=== PATIENT | male | born 1965 | race Caucasian/White ===

== ENCOUNTER 2016-10-06 21:28 | Emergency (ER) | payer OTHER ==
[~2016-10-06] VITALS: Ht 177.8 cm; Wt 90.0 kg
[~2016-10-06 21:28] MED LIST: DLN30 PO; OMEP40CA PO; PHENYTOIN PO; PRAV20TA PO
[2016-10-06 21:29] VITALS: TEMP 36.7; Ht 177.8 cm; Wt 90.0 kg
[2016-10-06] MEDS ORDERED: OXYCODONE HCL IR 5 MG TAB (IMMEDIATE RELEASE) PO STA (21:38)
[2016-10-06] MEDS ORDERED: KETOROLAC TROMETHAMINE 60 MG/2 ML VIAL IM STA (21:38)
--- NOTE | 2016-10-06 22:05 | DIAGNOSTIC IMAGING REPORT ---
LEFT RIBS UNILATERAL WITH PA CHEST CLINICAL HISTORY: Left rib pain status post trauma COMPARISON STUDY: No previous studies for comparison. FINDINGS: The heart is borderline enlarged. There is bilateral interstitial thickening. Superimposed left basal airspace opacities are likely atelectatic. No pneumothorax is visualized. No left-sided rib fractures are identified. IMPRESSION: 1. No evidence of pneumothorax 2. No left-sided rib fractures identified 3. Interstitial thickening Electronically signed by: Loc Berumen M.D. 10/06/2016 10:03 PM Dictated Date/Time: 10/06/2016 10:02 PM
[2016-10-06] MEDS ORDERED: DLN100 PO (22:07)
[2016-10-06] MEDS ORDERED: OXYC1TAB3 PO (22:29)
[2016-10-06] MEDS ORDERED: OXYCODONE IR HOME PACK PO ONE (22:30)
--- NOTE | 2016-10-06 22:48 | EMERGENCY ROOM VISIT NOTE ---
History First contact with patient: 21:33 Chief Complaint: RIB PAIN Stated Complaint: SORE LEFT SIDE- SHOULDER/RIBS-WC History of Present Illness The patient is a 51 year old male who presents to the Emergency Room with complaints of left-sided rib pain. The patient states that he had a seizure yesterday and when he came out of the seizure he was laying on the ground and had left rib pain. The patient states it hurts to take in a deep breath or any movement of his upper body. He also states that it hurts to move his left shoulder but the pain is in the rib cage and not in the shoulder joint and he moves his shoulder. The patient denies any shortness of breath. The patient denies any head injury, back pain or upper back pain or neck pain. The patient has been taking ibuprofen for pain. His last dose was this morning. Review of Systems 10 system review was performed and was negative unless stated otherwise history of present illness. Past Medical/Surgical History Seizure disorder due to head injury, cholecystectomy Social History Smoking Status: Never Smoker Alcohol Use: none Drug Use: none Marital Status: Housing Status: lives with family Occupation Status: disabled Current/Historical Medications Scheduled Escitalopram Oxalate (Lexapro), 30 MG PO DAILY Omeprazole (Prilosec), 40 MG PO DAILY Phenytoin Sodium (Dilantin), 50 MG PO DAILY Phenytoin Sodium (Dilantin), 300 MG PO QPM Phenytoin Sodium (Dilantin), 500 MG PO QAM Pravastatin (Pravachol ), 40 MG PO DAILY Scheduled PRN Oxycodone Immediate Rel Tab (Roxicodone Ir), 1-2 TAB PO Q6 PRN for Pain Allergies Coded Allergies: No Known Allergies (Unverified , NONE, 10/06/16) Physical Exam Vital Signs Date Time Temp Pulse Resp B/P Pulse Ox O2 Delivery O2 Flow Rate FiO2 10/06/16 21:29 36.7 82 20 139/84 99 Room Air Physical Exam GENERAL: 51-year-old white male appears uncomfortable secondary to rib pain. MENTAL Status: Alert and oriented 3. NECK: Supple, no lymphadenopathy noted. No carotid bruits noted. LUNGS: Clear auscultation without wheezes rales or rhonchi. CARDIAC: Regular rate and rhythm without murmur. Pulses is full and equal throughout. CHEST WALL: No gross bony deformity noted. No erythema or ecchymosis noted. The patient has tenderness palpation over the entire left anterior chest wall as well as the mid to lower posterior chest wall. LEFT SHOULDER: No gross bony deformity noted. The patient is nontender to palpation over the entire shoulder joint. Full range of motion without any pain elicited in the shoulder joint. Medical Decision & Procedures ER Provider Diagnostic Interpretation: LEFT RIBS UNILATERAL WITH PA CHEST CLINICAL HISTORY: Left rib pain status post trauma COMPARISON STUDY: No previous studies for comparison. FINDINGS: The heart is borderline enlarged. There is bilateral interstitial thickening. Superimposed left basal airspace opacities are likely atelectatic. No pneumothorax is visualized. No left-sided rib fractures are identified. IMPRESSION: 1. No evidence of pneumothorax 2. No left-sided rib fractures identified 3. Interstitial thickening Electronically signed by: Loc Berumen M.D. 10/06/2016 10:03 PM Medications Administered Medications (Trade) Dose Ordered Sig/Ky Route Start Time Stop Time Status Last Admin Dose Admin Ketorolac Tromethamine (Toradol Inj) 60 mg NOW STAT IM 10/06/16 21:38 10/06/16 21:39 DC 10/06/16 22:18 60 MG Oxycodone HCl (Roxicodone Immediate Rel Tab) 10 mg NOW STAT PO 10/06/16 21:38 10/06/16 21:39 DC 10/06/16 22:19 10 MG ED Course The patient was evaluated. The patient was given Toradol 60 mg IM and OxyIR 10 mg by mouth. X-ray of the left ribs was ordered and interpreted by the radiologist and myself as above without any acute findings. The patient was informed of the findings and was reevaluated was feeling better. The patient was given OxyIR home pack to take as directed. The patient was discharged home with his driving. Medical Decision Differential diagnosis include rib contusion versus rib fracture, pneumothorax Impression Primary Impression: Contusion of rib on left side Departure Information Dispostion Home / Self-Care Condition GOOD Prescriptions Oxycodone Immediate Rel Tab (ROXICODONE IR) 5 Mg Tab 1-2 TAB PO Q6 Y for Pain, #20 TAB Prov: Mary Barnett PA-C 10/06/16 Referrals Cisco Astorga D.O. (PCP) Forms HOME CARE DOCUMENTATION FORM, IMPORTANT VISIT INFORMATION, WORK / SCHOOL INSTRUCTIONS Patient Instructions [facility] Additional Instructions May try ice and/or heat intermittently to the affected area for pain relief. Ibuprofen 600 mg every 6 hours with food for pain. Take OxyIR as needed for more severe pain. Do not drive while taking the OxyIR. If symptoms are not improving in 4-5 days, follow-up with your family doctor for reevaluation. Problem Qualifiers Primary Impression: Contusion of rib on left side Encounter type: initial encounter Qualified Codes: S20.212A - Contusion of left front wall of thorax, initial encounter
[2016-10-06 22:55] VITALS: BP 128/70; PULSE 70; O2SAT 98
[2017-05-24] MEDS ORDERED: ESCI1TAB10 PO (00:39)
== END 2016-10-06 22:56 | disposition home or self-care (01) ==
LOC: C.EDB 21:29
DX: S20.212A Contusion of left front wall of thorax, initial encounter (principal); W19.XXXA Unspecified fall, initial encounter; G40.909 Epilepsy, unspecified, not intractable, without status epilepticus; Z87.820 Personal history of traumatic brain injury; Z90.49 Acquired absence of other specified parts of digestive tract; Z79.899 Other long term (current) drug therapy

== ENCOUNTER 2017-05-24 16:24 | Emergency (ER) | payer OTHER ==
[~2017-05-24] VITALS: Ht 175.3 cm; Wt 98.1 kg
[~2017-05-24 16:24] MED LIST changes: +DLN100 PO; -DLN30 PO; +ESCI1TAB10 PO; -OMEP40CA PO; -PHENYTOIN PO
[2017-05-24 16:31] VITALS: TEMP 36.6; Ht 175.3 cm; Wt 98.1 kg
[2017-05-24] MEDS ORDERED: XYLOCAINE 1%/SOD BICARB 20 ML VIAL INFIL ONE (16:33)
[2017-05-24] MEDS ORDERED: PRAV40TA2 PO (17:27)
[2017-05-24] MEDS ORDERED: ASPI81TA28 PO (17:27)
--- NOTE | 2017-05-24 17:43 | EMERGENCY ROOM VISIT NOTE ---
ED Visit Note First contact with patient: 16:34 Chief Complaint: "Laceration to R hand, 4th and 5th digits". History of Present Illness: This patient is a 52 who presents to the Emergency Department via private vehicle for evaluation of their R 4th and 5th digit lacerations. laceration. Patient sustained the laceration while having a seizure, and fell to the ground striking his hand on an unknown object. The who was present notes that he has a history of seizures, and has one every few months. He follows with Dr. Gipson in the area as well as his family doctor. She notes that when she went to the garage she saw him beginning to have a seizure exhibiting tonic-clonic like activity and then helped him to the ground so he did not strike his head. She notes that this episode lasted for a short period of time. He was not post ictal. There was no biting of the tongue or urination spontaneously. The patient denies any pain in the fingers. There was minimal bleeding. They packed the fingers with white bread and then wrapped them. This was for hemostasis. His tetanus was last updated in 2008. He is on 100 mg of phenytoin. Medications: As noted below Allergies: Shellfish PMH: Seizures, traumatic brain injury SHx: Patient was locally ROS: All pertinent positive and negative review of systems are appropriately documented in the History of Present Illness. Physical Exam: VITAL SIGNS - Vital signs and nursing notes were reviewed. Stable. GENERAL -52-year-old male appearing his stated age who is in no acute distress. Communicates well with provider and answers questions appropriately. SKIN - There is a 2 cm long laceration noted noted to the dorsal aspect of the patient's left fifth digit. There is also a small 1 m laceration on the patient 's left fourth digit. There is no active bleeding noted.. The edges gape apart with traction. No foreign bodies appreciated. Upon further examination there are no deep structures including vessel, tendon, or bony structures appreciated. There is no active bleeding noted. MUSCULOSKELETAL - Laceration as described above. +5/5 strength appreciated of the affected digit. Full range of motion of the affected digit. NEUROLOGIC - Spinothalamic tract was found to be intact with ability to discriminate sharp versus dull sensation. No sensory defects of the dorsal column were appreciated utilizing light touch for evaluation. VASCULAR - Capillary refill was brisk. ED Course: Patient was seen and evaluated by myself. Risks and benefits of performing primary wound closure versus no repair were discussed with the patient who verbalizes understanding. Verbal consent was obtained prior to performing the procedure. The patient was offered workup for seizure but this was declined by the family noting that this is similar to previous seizures, and there is no change. 3 cc of 1% buffered lidocaine was used to perform local anesthetization of the patient's left fourth digit. Wound was dressed in the typical sterile fashion utilizing normal saline and Betadine. The wound was sterilely draped. The bread was removed. Once proper anesthetization was established, the wound was further examined and demonstrated no deep involvement. The wound was copiously irrigated with normal saline and Betadine. The wound was closed using 3 simple, 5-0 nylon sutures with the wound edges being well approximated. The other 1 m wound was left to close on its own as it was very superficial and the wound edges did not gape without extreme traction. Patient tolerated the procedure well. No complications were met. The wound was cleansed and dressed with a Bacitracin dressing. A metal splint was applied to the finger for comfort. Patient educated on worrisome symptoms for return visit to the Emergency Department. Patient discharged to home in good condition. Case was discussed with the attending physician. In the evaluation and treatment of this patient, the following differential diagnoses were considered: Finger Fracture, Finger Dislocation, Finger Sprain, Finger Contusion, Jersey Finger, or Mallet Finger. Current/Historical Medications Scheduled Aspirin (Aspirin Ec), 81 MG PO DAILY Escitalopram Oxalate (Lexapro), 30 MG PO DAILY Omeprazole (Prilosec), 40 MG PO DAILY Phenytoin Sodium (Dilantin), 300 MG PO QPM Phenytoin Sodium (Dilantin), 500 MG PO QAM Pravastatin Sodium (Pravastatin Sodium), 40 MG PO QPM Allergies Coded Allergies: Shellfish (Verified Allergy, Severe, Facial swelling, 05/24/17) Vital Signs Date Time Temp Pulse Resp B/P (MAP) Pulse Ox O2 Delivery O2 Flow Rate FiO2 05/24/17 17:58 86 20 132/70 97 05/24/17 16:31 36.6 66 18 132/86 96 Room Air Departure Information Impression Primary Impression: Laceration Dispostion Home / Self-Care Condition GOOD Referrals No Doctor, Assigned (PCP) Patient Instructions My [facility] Additional Instructions Discharge Instructions: You have received 3 sutures on your finger. These sutures are NOT dissolvable and WILL need to be removed by a health care provider in 12 days. You can return to the Emergency Department or contact your Primary Care Provider to have the sutures removed. Please wear the splint for comfort until the sutures are removed. Proper wound care is essential for adequate wound healing and infection prevention. You can shower and clean the wound with soap and water. Do not scour over the wound, pat dry with a towel. Do not submerse the wound (i.e. bathe or dish wash) until the sutures have been removed. You can use an antibiotic ointment with a dressing over the wound for the next 3-4 days. After this time you may leave the wound dry and open to the air. If crust develops over the wound you can use a Q-tip to apply a 1:1 peroxide:water solution to clean the wound. I would recommend that you follow with your established individual who follows your seizures to inform you that you had one today. Thank you Look for signs of infection of the wound including: increased pain, swelling, foul discharge, streaking, or increased temperature. If any of these are noticed you should return to the Emergency Department for further assessment and treatment. As with any laceration you may have received nerve damage to the surrounding tissues. This damage may or may not be permanent. You should keep the area covered with sunscreen for the first 6 months to 1 year when at risk for exposure to help minimize scarring. You can also use scar reducing creams or Vitamin E oil to help minimize scarring. Return to the emergency department if your symptoms worsen despite treatment course outlined above.
[2017-05-24 17:58] VITALS: BP 132/70; PULSE 86; O2SAT 97
[2017-05-24] MEDS ORDERED: DLN100 PO (22:07)
[2017-05-24] MEDS ORDERED: DLN/100 PO (22:07)
[2017-05-24] MEDS ORDERED: OMEP40CA41 PO (22:07)
== END 2017-05-24 17:59 | disposition home or self-care (01) ==
LOC: C.EDB 16:25 → C.EDC 17:59
DX: S61.214A Laceration without foreign body of right ring finger without damage to nail, initial encounter (principal); S61.216A Laceration without foreign body of right little finger without damage to nail, initial encounter; W19.XXXA Unspecified fall, initial encounter; Y92.015 Private garage of single-family (private) house as the place of occurrence of the external cause; R56.9 Unspecified convulsions; Z87.820 Personal history of traumatic brain injury; Z79.82 Long term (current) use of aspirin; Z79.899 Other long term (current) drug therapy

== ENCOUNTER 2017-06-06 14:20 | Emergency (ER) | payer OTHER ==
[~2017-06-06] VITALS: Ht 177.8 cm; Wt 97.7 kg
[~2017-06-06 14:20] MED LIST changes: +ASPI81TA28 PO; +DLN/100 PO; +OMEP40CA41 PO; -PRAV20TA PO; +PRAV40TA2 PO
[2017-06-06 14:21] VITALS: BP 132/78; PULSE 65; TEMP 36.4; O2SAT 96; Ht 177.8 cm; Wt 97.7 kg
--- NOTE | 2017-06-06 20:30 | EMERGENCY ROOM VISIT NOTE ---
ED Visit Note First contact with patient: 14:26 CHIEF COMPLAINT: Suture removal. HISTORY OF PRESENT ILLNESS: Mr. Cedeño is a 52-year-old white male who ambulates into the ED requesting suture removal. He reports 15 days ago he sustained a laceration to the for a right little finger. He was seen in this ED and his wound was closed with sutures. He reports since being discharged she has been feeling well and feels a laceration is healing well. He denies any signs of infection including fevers, pain, swelling, redness, or drainage from the wound. PHYSICAL EXAM: Vital Signs: Date Time Temp Pulse Resp B/P (MAP) Pulse Ox O2 Delivery O2 Flow Rate FiO2 06/06/17 14:21 36.4 65 18 132/78 96 Room Air General: 52-year-old white male in no acute distress, nontoxic-appearing, afebrile and hemodynamically stable. Neurological: Awake, alert and oriented 3. Answering questions appropriately and following commands. Right hand:: Clean dry and intact wound on the little finger without signs of infection (erythema, swelling, tenderness, purulent drainage) ED COURSE: Patient is assessed as noted above. Patient's medication list was reviewed. 3 sutures were removed without any difficulty and there was no separation of the wound edges. Patient was educated about today's findings and instructed on his treatment plan ; he verbalized understanding and agreement with this plan. DISPOSITION: Patient discharged home in stable condition. CLINICAL IMPRESSION: Suture removal; Well healing laceration. PLAN: Comfort measures, wound care and signs of infection was discussed with the patient and his . Patient was encouraged to follow-up with PCP or return to the ED for any signs of infection or any new/concerning symptoms.
== END 2017-06-06 14:45 | disposition home or self-care (01) ==
LOC: C.EDB 14:21 → C.EDD 14:45
DX: S61.216D Laceration without foreign body of right little finger without damage to nail, subsequent encounter (principal); X58.XXXD Exposure to other specified factors, subsequent encounter; Z48.02 Encounter for removal of sutures